=== PATIENT | female | born 1970 | race African-American/Black ===

== ENCOUNTER → 2018-07-27 09:15 | Outpatient (CLI) | payer MEDICAID | END | disposition home or self-care (01) | LOC: D.RAD 09:15 | DX: M25.512 Pain in left shoulder (principal) ==

== ENCOUNTER 2018-10-04 13:03 | Day surgery (SDC) | payer MEDICAID ==
[2018-10-03 11:10] LABS: HEMATOCRIT 36.5 % (36.0-48.0); HEMOGLOBIN 11.8 g/dL (12-16); MCHC 32.3 g/dL (31.0-37.0); MCV 74.3 fL (80.0-100.0); MEAN PLATELET VOLUME 9.2 fL (7.4-10.4); RBC 4.91 10x6/uL (4.00-5.40); RDW 15.7 % (11.5-14.5); WBC 7.3 10x3/uL (4.8-10.8)
[~2018-10-04] VITALS: Ht 165.1 cm; Wt 104.3 kg
--- NOTE | ~2018-10-04 | OP ---
PATIENT NAME: LOYDA KELLY MEDICAL RECORD: [id number] :74 LOCATION:[facility] ADMISSION DATE: SURGEON: RUDY LOPEZ DO DATE OF OPERATION: 10/04/2018 PROCEDURES PERFORMED: Left shoulder arthroscopy with subacromial decompression, distal clavicle excision, labral debridement and biceps tenodesis. PREOPERATIVE DIAGNOSES: Left shoulder acromioclavicular joint arthritis, subacromial impingement, SLAP tear type 2. POSTOPERATIVE DIAGNOSES: Left shoulder acromioclavicular joint arthritis, subacromial impingement, SLAP tear type 2. SURGEON: Rudy Lopez DO INDICATIONS FOR SURGERY: Ms. Kelly is a 48-year-old female who has complained of left shoulder pain for quite some time now with lifting and reaching. She had positive [place]ont's, positive Akers, and Neer sign for impingement. She had an MRI done with arthrogram that showed a SLAP tear and also a type 2 acromion as well as inflammation in the supraspinatus tendon. Informed her of the risks and benefits due to the fact she has been through all the nonoperative treatments including injections and physical therapy through months of that and that she is ready to have something done to alleviate her pain. I told her we could do that, but there was risk of infection, bleeding, damage to nerve and vessel, need for further surgery and she is aware of those things. DESCRIPTION OF THE PROCEDURE: The patient was taken to the operative suite and laid in the right lateral decubitus position after receiving a block by anesthesia in the preoperative area. She was given general anesthetic and the left upper extremity was prepped and draped in sterile fashion including the left shoulder. Timeout was performed and it was agreed the correct side, site, patient, and procedure. The patient was given 2 grams Ancef preoperatively. The shoulder scrub was then began by injecting 60 mL of normal saline into the shoulder joint itself and then the #11-blade scalpel was used to establish posterior portal. The trocar was entered into the shoulder joint and the camera. The water was turned on. Noted to have a large labral tear anterior to posterior at the superior labrum. The anterior portal was then established with an #18-gauge spinal needle and #11-blade scalpel. The burner was then brought in through that portal and then the bicep tenotomy was done at that point and the labral debridement. Once the labrum was debrided back to stable position, the supraspinatus was inspected and there were no tears seen in the inferior gutter as well as inspected and no loose body is seen in it. The subscapularis was also inspected and was seen to be in good condition. The scope was then changed to the subacromial space and there was a significant amount of inflamed bursa there. The lateral portal was established with an #18-gauge spinal needle and then the shaver was brought in and cleaned up the bursectomy was done. The burner was then brought and cleaned off the distal acromion and acromioplasty was then done. Then, the AC joint was exposed and a distal clavicle excision was done opening up the joint approximately 7 mm between the acromioclavicular and the clavicle. The rotator cuff was then inspected on the bursal side and no tears were seen and it was in good condition. Then, the scope was removed from the shoulder and the incision was made on the anterior arm. Careful dissection was made down to the long head OPERATIVE REPORT [id number] LOYDA KELLY of the bicep tendon and this was brought out through the wound, whipstitched and a single unicortical button hole was drilled and then placed into the humerus and cinched the tendon down. This was tied and then a free needle was used to tie the suture back over the tendon and this was tied down. The excess suture and tendon were removed at that time with the scissors. The site was irrigated thoroughly. The wound was then closed with 2-0 Vicryl, 4-0 Monocryl ran on the skin. The Vicryl was done in inverted interrupted fashion. All the portal sites were closed with 4-0 Monocryl in inverted interrupted fashion and then Dermabond was placed on all the wounds and Telfa and Tegaderm were placed on the wounds. The patient was then awakened and taken to the recovery in stable condition. BLOOD LOSS: Minimal. COMPLICATIONS: None. TRANSINT:[id number] Voice Confirmation ID: [id number] DOCUMENT ID: [id number] RUDY LOPEZ DO at 0720 CC: [id number] DICTATION DATE: 10/04/18 3027 [employer]: 10/04/18 2255 [facility] 10/04/18 [id number] [place] [address]
[~2018-10-04 13:03] MED LIST: IBUPROFEN800 MG PO; NORVASC10 MG PO
[2018-10-04 13:50] VITALS: BP 126/79; Ht 165.1 cm; Wt 104.3 kg
[2018-10-04] MEDS ORDERED: PERCOCET 7.5/321 TAB PO (17:40)
[2018-10-04] MEDS ORDERED: VISTARIL50 MG PO (17:40)
== END 2018-10-04 19:15 | disposition home or self-care (01) ==
LOC: D.OPS 13:03 → D.PAN 14:00 → D.OPS 15:30 → D.PAN 17:05 → D.OPS 19:15
PROVIDERS: Anesthesiology
DX: M13.812 Other specified arthritis, left shoulder (principal); M75.42 Impingement syndrome of left shoulder; S43.432A Superior glenoid labrum lesion of left shoulder, initial encounter; X58.XXXA Exposure to other specified factors, initial encounter; Z01.812 Encounter for preprocedural laboratory examination

== ENCOUNTER → 2018-12-01 08:21 | Outpatient (CLI) | payer MEDICAID ==
[2018-10-04 13:50] VITALS: BMI 38.3
[~2018-12-01 08:21] MED LIST changes: +PERCOCET 7.5/321 TAB PO; +VISTARIL50 MG PO
== END | disposition home or self-care (01) ==
LOC: D.MRI 11-21 16:00
DX: M54.16 Radiculopathy, lumbar region (principal)